=== PATIENT | male | born 1935 | race Two or more races ===

== ENCOUNTER 2019-01-07 18:30 | Inpatient (IN) | payer MEDICARE, MEDICAID ==
[~2019-01-07] VITALS: Ht 165.1 cm; Wt 65.8 kg
[2019-01-07] MEDS ORDERED: SODIUM CHLORIDE 0.9% 1,000 ML IV ONE ×2 (19:15→22:00)
[2019-01-07 20:36] LABS: CLARITY URINE CLOUDY (CLEAR); COLOR URINE YELLOW (YELLOW); KETONES URINE NEGATIVE (NEGATIVE); LEUKOCYTE ESTERASE URINE 2+ (NEGATIVE); NITRITE URINE NEGATIVE (NEGATIVE); OCCULT BLOOD URINE 2+ (NEGATIVE); PROTEIN URINE TRACE (NEGATIVE); SPECIFIC GRAVITY URINE 1.021 (1.005-1.030); UROBILINOGEN URINE 0.2 E.U./dL (0.2-1.0)
[2019-01-07 20:44] LABS: *AMPHETAMINES SCREEN URINE NEGATIVE (NEGATIVE); *BARBITURATES SCREEN URINE NEGATIVE (NEGATIVE); *BENZODIAZEPINES SCREEN URINE NEGATIVE (NEGATIVE); *COCAINE SCREEN URINE NEGATIVE (NEGATIVE); METHADONE URINE SCREEN NEGATIVE (NEGATIVE); OPIATES URINE SCREEN NEGATIVE (NEGATIVE); PHENCYCLIDINE URINE SCREEN NEGATIVE (NEGATIVE)
[2019-01-07 20:45] LABS: CANNABINOID URINE SCREEN NEGATIVE (NEGATIVE)
[2019-01-07 21:00] LABS: BASOPHILS % 0.3 % (0.0-2.0); EOSINOPHILS % 0.6 % (0.0-5.0); HEMATOCRIT. 32.9 % (42.0-52.0); HEMOGLOBIN. 10.7 g/dL (14.0-18.0); LYMPHOCYTES % 7.6 % (20.0-50.0); MEAN CORPUSCULAR HEMOGLOBIN 29.7 pg (28.0-32.0); MEAN CORPUSCULAR VOLUME 91.1 fL (80.0-94.0); MEAN PLATELET VOLUME 10.6 fl (7.4-10.4); NEUTROPHILS % 85.5 % (40.0-76.0); PLATELET 116 x1000/uL (130-400); RED BLOOD CELL COUNT 3.61 mill/uL (4.7-6.1); RED CELL DISTRIBUTION WIDTH 15.9 % (11.6-14.6)
[2019-01-07 21:02] LABS: CHLORIDE 102 mEq/L (98-107)
[2019-01-07 21:04] LABS: INR 1.1; PROTHROMBIN TIME 11.2 sec (9.6-11.0)
[2019-01-07 21:05] LABS: ETHANOL BLOOD < 10 mg/dL
[2019-01-07] MEDS ORDERED: CEFTRIAXONE 1 G PREMIX 50 ML IV ONE (22:00)
[2019-01-08] MEDS ORDERED: ACETAMINOPHEN 325MG TABLET PO PRN
[2019-01-08] MEDS ORDERED: DEXTROSE 50% WATER 50ML SYRINGE IV PRN
[2019-01-08] MEDS ORDERED: HYDRALAZINE 20MG/ML VIAL IV PRN
[2019-01-08] MEDS ORDERED: MAGNESIUM/ALUMINUM HYDROXIDE/SIMETHICONE 30ML UDC PO PRN
[2019-01-08] MEDS ORDERED: IPRATROPIUM/ALBUTEROL 0.5-3(2.5)MG/3ML NEB INH PRN
[2019-01-08] MEDS ORDERED: ONDANSETRON HCL 4MG/2ML INJ IV PRN
[2019-01-08] MEDS ORDERED: HYDROMORPHONE HCL/PF 2MG/ML CPJ IV PRN
[2019-01-08] MEDS ORDERED: DIPHENHYDRAMINE 50MG/ML VIAL IV PRN
[2019-01-08] MEDS ORDERED: LORAZEPAM 2MG/ML CPJ IV PRN
[2019-01-08] MEDS ORDERED: DOCUSATE SODIUM 100MG CAPSULE PO PRN
[2019-01-08] MEDS ORDERED: GUAIFENESIN 200MG/10ML SUGAR FREE UDC PO PRN
[2019-01-08] MEDS ORDERED: HYDROCODONE/ACETAMINOPHEN 5/325MG TABLET PO PRN
[2019-01-08] MEDS ORDERED: CLONIDINE 0.1MG TABLET PO PRN
[2019-01-08] MEDS ORDERED: INSULIN LISPRO 100 UNITS/ML SUBCUT NR (00:15)
[2019-01-08 03:00] VITALS: BP 112/51
[2019-01-08 04:00] VITALS: BP 123/51
[2019-01-08] MEDS: SODIUM CHLORIDE 0.9% 1,000 ML IV SCH ×2 (04:51→17:08)
[2019-01-08] MEDS: SODIUM CHLORIDE 0.9% INJ 3ML FLUSH IVF SCH ×3 (06:00→22:25)
[2019-01-08 06:15] LABS: CHLORIDE 109 mEq/L (98-107)
[2019-01-08 06:27] LABS: CREATINE KINASE 67 IU/L (39-308)
[2019-01-08 06:29] LABS: CREATINE KINASE MB FRACTION 3.2 ng/mL (0.5-3.6)
[2019-01-08] MEDS: BLOOD SUGAR DIAGNOSTIC STRIP TEST SCH ×4 (06:55→21:00)
[2019-01-08] MEDS: INSULIN LISPRO 100 UNITS/ML SUBCUT SCH ×4 (07:50→22:24)
[2019-01-08 08:00] VITALS: BP 138/64
[2019-01-08 12:00] VITALS: BP 124/66
[2019-01-08 16:00] VITALS: BP 127/60
[2019-01-08 20:00] VITALS: BP 129/58
[2019-01-08] MEDS ORDERED: CEFTRIAXONE 1 G PREMIX 50 ML IV SCH ×2 (22:00)
[2019-01-09] VITALS: BP 127/61
[2019-01-09] MEDS: SODIUM CHLORIDE 0.9% 1,000 ML IV SCH ×2 (03:08→13:14)
[2019-01-09 04:00] VITALS: BP 116/60
[2019-01-09] MEDS: SODIUM CHLORIDE 0.9% INJ 3ML FLUSH IVF SCH ×2 (06:33→13:14)
[2019-01-09] MEDS: BLOOD SUGAR DIAGNOSTIC STRIP TEST SCH ×3 (06:33→17:59)
[2019-01-09] MEDS: INSULIN LISPRO 100 UNITS/ML SUBCUT SCH ×3 (07:39→18:19)
[2019-01-09 08:00] VITALS: BP 127/64
[2019-01-09 12:00] VITALS: BP 137/64
[2019-01-09 16:00] VITALS: BP 126/57
[2019-01-09 17:28] LABS: CREATINE KINASE MB FRACTION 1.7 ng/mL (0.5-3.6)
[2019-01-09 18:39] VITALS: BP 126/57
[2019-01-12 15:08] LABS: ANTI-NUCLEAR ANTIBODIES DIRECT Positive (Negative)
[2019-01-13 08:19] LABS: COMPLEMENT C3 103 mg/dL (82-167)
== END 2019-01-09 21:53 | disposition home or self-care (01) | DRG 682 ==
LOC: ER 18:30 → 6WST 22:20 → EDBEDREQ 22:26 → EDBEDREQTM 22:26 → ENRESERV 23:43 → 6WST 01-08 01:59
PROVIDERS: ADMIT Internal Medicine; ATTEND Internal Medicine
DX: N17.0 Acute kidney failure with tubular necrosis (principal); E43 Unspecified severe protein-calorie malnutrition; G93.40 Encephalopathy, unspecified; E87.1 Hypo-osmolality and hyponatremia; N39.0 Urinary tract infection, site not specified; E11.65 Type 2 diabetes mellitus with hyperglycemia; N18.9 Chronic kidney disease, unspecified; E11.22 Type 2 diabetes mellitus with diabetic chronic kidney disease; D64.9 Anemia, unspecified; E86.0 Dehydration; E87.5 Hyperkalemia; Z59.0 Homelessness; Z68.24 Body mass index [BMI] 24.0-24.9, adult
CPT/HCPCS: 36415; 71045; 76770; 80048; 80305; 80320; 82140; 82550; 82553; 82962; 83036; 84484; 86038; 86160; 93005; 93970; 99291; J0696; J1815; J7030; G0480